=== PATIENT | female | born 1955 | race Caucasian/White ===

== ENCOUNTER → 2023-10-30 08:14 | Outpatient (REF) | payer BC, SELFPAY | LOC: HWRAD 08:14 | PROVIDERS: ATTENDING PHYSICIAN Obstetrics & Gynecology Gynecology; FAMILY PHYSICIAN Family Medicine | DX: R10.2 Pelvic and perineal pain (principal) | CPT/HCPCS: 76830; 76856 ==

== ENCOUNTER → 2023-12-25 07:15 | Outpatient (REF) | payer BC, SELFPAY | LOC: WDC 07:15 | PROVIDERS: ATTENDING PHYSICIAN Obstetrics & Gynecology Gynecology | DX: Z12.31 Encounter for screening mammogram for malignant neoplasm of breast (principal) | CPT/HCPCS: 77063; 77067 ==

== ENCOUNTER 2024-03-01 20:01 | Emergency (ER) | payer BC, SELFPAY ==
[2024-03-01 20:10] VITALS: BP 126/74
[2024-03-01] MEDS: TYLENOL 650 MG PO (20:19)
[2024-03-01 20:26] LABS: % Basophils 0.5 % (0-2); % Immature Granulocytes 0.3 % (0-0.5); % Lymphocytes 13.4 % (20.5-51.1); % Monocytes 3.5 % (1.7-9.3); % Neutrophils 82.3 % (42.2-75.2); Absolute Lymphocytes 0.8 10^3/uL (1.2-3.4); Absolute Monocytes 0.2 10^3/uL (0.1-0.6); Hematocrit 38.8 % (37.0-47.0); Mean Corp Hgb Conc. 36.1 g/dL (33.0-37.0); Mean Corpuscular Hgb 31.8 pg (27.0-31.0); Mean Corpuscular Volume 88.2 fL (81.0-99.0); Mean Platelet Volume 8.6 fL (7.4-10.4); Nucleated Red Blood Cells % 0 %; Platelet Count 172 10^3/uL (130-400); Red Cell Dist. Width 11.8 % (11.5-14.5); White Blood Cell Count 6.1 10^3/uL (4.8-10.8)
[2024-03-01 20:47] LABS: ALT (SGPT) 97 U/L (0-35); AST (SGOT) 95 U/L (14-36); Albumin 4.3 g/dl (3.5-5.0); Alkaline Phosphatase 138 U/L (38-126); Blood Urea Nitrogen 9 mg/dl (7-17); Calcium 9.2 mg/dl (8.4-10.2); Carbon Dioxide 26 mmol/L (22-30); Chloride 98 mmol/L (98-107); Glucose 116 mg/dl (70-99); Potassium 3.7 mmol/L (3.5-5.1); Sodium 133 mmol/L (135-145); Total Bilirubin 0.8 mg/dl (0.2-1.3); Total Protein 7.7 g/dl (6.3-8.2); eGFR > 60.00
[2024-03-01 21:13] VITALS: BMI 25.1
[2024-03-01 21:16] VITALS: BP 118/73
[2024-03-01 21:17] VITALS: BP 118/73
[2024-03-01] MEDS: MOTRIN 600 MG PO (21:36)
[2024-03-01 22:00] VITALS: BP 109/69
[2024-03-01 22:20] LABS: Lactic Acid 0.6 mmol/L (0.7-2.0)
[2024-03-01] MEDS: NSS 1000 IV (22:37)
[2024-03-01 22:58] LABS: Urine Albumin 1+ (Neg - Trace); Urine Bilirubin Negative (Negative); Urine Character Clear (Clear); Urine Color Yellow; Urine Glucose Negative (Negative); Urine Ketone 2+ (Negative); Urine Leukocyte Trace (Negative); Urine Nitrite Negative (Negative); Urine Occult Blood 1+ (Negative); Urine Urobilinogen 1+ (Neg - 1+)
[2024-03-01 23:03] VITALS: BP 102/67
[2024-03-02 00:17] VITALS: BP 95/64
[2024-03-02 00:30] VITALS: BP 92/63
[2024-03-02 00:32] VITALS: BP 98/65
--- NOTE | 2024-03-02 00:37 | ED.GENMED ---
History of Present Illness
General
Chief Complaint: Weakness
Source: patient
Exam Limitations: none
Time Seen by Provider: 03/01/24 21:16
Travel History
Have you had any contact with someone who has COVID-19?: No
Do you have any symptoms of coronavirus? Fever > 100 degrees, chills, cough, shortness of breath, sore throat, loss of taste or smell, muscle aches, or headache?: No
History of Present Illness
History of Present Illness:
68-year-old female presents with fatigue, fever myalgias headache. She was seen by the family doctor thought to potentially have a sinus infection and was started on amoxicillin. She took her first dose of 875 mg of amoxicillin this morning. She
notes no improvement. Temperature upon arrival is elevated. She is nauseous without vomiting. She does note a circular rash on the right side. Recent trip to [place]. No known sick contacts. No other complaint
Phy Exam
Physical Exam
Physical Exam:
General: Slightly ill-appearing female no acute respiratory distress
HEENT: Normocephalic mucosa moist neck is supple no adenopathy posterior pharynx without erythema
Heart: Regular rate and rhythm no murmurs lungs: Clear no wheeze or rales
Abdomen is soft nontender nondistended no guarding rebound normal bowel sounds
Extremities: No cyanosis or edema
Neurologic exam: No meningeal signs. Alert and oriented
Musculoskeletal exam: Spine nontender
Course
Orders/Labs/Results
Orders:
Orders
03/01/24 20:16
Acetaminophen [Tylenol] 650 mg PO NOW STA
03/01/24 20:22
CMP [Comprehensive Metabolic Panel] Urgent
Complete Blood Count/With Diff Urgent
03/01/24 21:29
Lactic Acid Q4H
Comment: ON ICE, CANCEL 2ND ORDER IF FIRST LACTIC ACID LEVEL <2
Lyme Progressive Urgent
Blood Culture Q30M
LISA Source: Blood/Venous
Specimen Description:
Comment: FROM 2 SEPARATE SITES
03/01/24 21:30
Blood Culture Q30M
LISA Source: Blood/Venous
Specimen Description:
Comment: FROM 2 SEPARATE SITES
03/01/24 21:33
Ibuprofen [Motrin] 600 mg PO NOW STA
03/01/24 22:26
0.9% Sodium Chloride 1000 ml [Nss] 1,000 ml IV BOLUS
CR Chest - 2 Views Urgent
Comment:
Reason For Exam: fever
03/01/24 22:35
Urinalysis Reflex To Culture Urgent
Date Specimen was Collected: 03/01/24
Time Specimen was Collected: 22:34
Urine Microscopic Reflex Cult Urgent
Urine Culture Urgent
LISA Source: U
Specimen Description:
Date Specimen was Collected: 03/01/24
Time Specimen was Collected: 22:34
03/02/24 00:34
0.9% Sodium Chloride 1000 ml [Nss] 1,000 ml IV BOLUS
03/02/24 01:09
Doxycycline [Vibramycin] 100 mg PO NOW STA
Abnormal Lab Results
03/01/24 03/01/24 03/01/24
20:22 21:29 22:35
MCH 31.8 H pg
(27.0-31.0)
Absolute Lymphs (auto) 0.8 L 10^3/uL
(1.2-3.4)
Neutrophils % 82.3 H %
(42.2-75.2)
Lymphocytes % 13.4 L %
(20.5-51.1)
Sodium 133 L mmol/L
(135-145)
Glucose 116 H mg/dl
(70-99)
Lactic Acid 0.6 L mmol/L
(0.7-2.0)
AST 95 H U/L
(14-36)
ALT 97 H U/L
(0-35)
Alkaline Phosphatase 138 H U/L
(38-126)
Urine Ketones 2+ A
(Negative)
Ur Occult Blood Reflex 1+ A
(Negative)
Leukocyte Esterase Rfl Trace A
(Negative)
Urine RBC 3-6 A /HPF
(0-2)
Urine Bacteria (Reflex) Moderate A
(Negative)
Urine Albumin (Reflex) 1+ A
(Neg - Trace)
03/01/24 20:22
03/01/24 20:22
Vital Signs
Initial and Last Documented VS:
Initial Vital Signs
Temp Pulse Resp BP Pulse Ox
102.0 F H 93 18 126/74 95
03/01/24 20:10 03/01/24 20:10 03/01/24 20:10 03/01/24 20:10 03/01/24 20:10
Last Documented Vital Signs
Temp Pulse Resp BP Pulse Ox
98.1 F 60 17 97/62 94
03/02/24 00:39 03/02/24 01:31 03/02/24 01:31 03/02/24 01:31 03/02/24 01:31
MDM/Problems Addressed
Differential Diagnosis Includes:
Temperature here 102.0. Tylenol and Motrin administered for fever. Fluids ordered. Chest x-ray urinalysis labs pending. Will order Lyme study secondary to circular rash on right thigh
*Critical Care Note
Total Time (30-74mins, 75-104mins- exclusive of procedures): Not Applicable
Update Note
Update Note:
Patient feeling much better after 2 L of fluid. Fever is gone headaches resolved. Still has circular rash on right lateral thigh consider possible Lyme. Will switch to doxycycline. Stable for discharge
ED Attending Note
-
Portions of this chart may have been created with voice recognition software.� Occasional wrong word or��sound alike� substitutions may have occurred due to the inherent limitations of voice recognition software.
Discharge Plan
Departure
Patient Disposition: Home (Routine Discharge)
Date of Disposition: 03/02/24
Time of Disposition: 01:11
Patient with high blood pressure during this ER visit?: No
Discharge Problem:
Fever
Instructions: Lyme disease, Fever, Adult (DC)
Prescriptions:
New
doxycycline hyclate 100 mg capsule
100 mg PO BID Qty: 28 0RF
Referrals:
Jada Erickson MD [Family Provider] -
Activity Restrictions/Additional Instructions:
As discussed you will will receive a call if your Lyme test is positive. Stop amoxicillin. Start doxycycline twice a day. Return here for worsening symptoms otherwise follow-up with family doctor
Interventions
Interventions:
*Risk Screen - Suicide Last Done: 03/01/24 20:10
*General Assessment Last Done: 03/01/24 20:10
*Neglect/Abuse Screening Last Done: 03/01/24 20:10
*Nursing Disposition Last Done: 03/02/24 01:40
ED- Cardiac Assessment Last Done: 03/01/24 21:39
ED- Neurological Assessment Last Done: 03/01/24 21:39
ED- Pulmonary Assessment Last Done: 03/01/24 21:39
Discharge Date and Time
Discharge Date/Time: 03/02/24 01:43
Print Language: [place]
[2024-03-02] MEDS: NSS 1000 IV (00:40)
[2024-03-02 00:45] LABS: Urine Hyaline Cast 0-2 /LPF (0-2); Urine Squamous Cell >30 /LPF (Few)
[2024-03-02 00:47] LABS: Urine Bacteria Moderate (Negative)
[2024-03-02 01:31] VITALS: BP 97/62
[2024-03-02] MEDS: VIBRAMYCIN 100 MG PO (01:37)
[2024-03-04 14:33] LABS: Lyme Antibody Screen, EIA Negative (Negative)
== END 2024-03-02 01:43 | disposition home or self-care (01) ==
LOC: EMR 20:01
PROVIDERS: Emergency Medicine; Physician Assistant; EMERGENCY PHYSICIAN Student in an Organized Health Care Education/Training Program; FAMILY PHYSICIAN Family Medicine
DX: R50.9 Fever, unspecified (principal)
CPT/HCPCS: 99284; 96360; 96361; 71046; 80053; 81003; 81015; 83605; 85025; 86618; 87040; 87086

== ENCOUNTER → 2024-09-02 06:25 | Day surgery (SDC) | payer BC, SELFPAY | LOC: GI 06:25 | PROVIDERS: ATTENDING PHYSICIAN Internal Medicine Gastroenterology | DX: D12.2 Benign neoplasm of ascending colon (principal); K57.30 Diverticulosis of large intestine without perforation or abscess without bleeding; K22.70 Barrett's esophagus without dysplasia; K22.89 Other specified disease of esophagus; K44.9 Diaphragmatic hernia without obstruction or gangrene; K31.7 Polyp of stomach and duodenum; Z86.0101 Personal history of adenomatous and serrated colon polyps; K31.89 Other diseases of stomach and duodenum | CPT/HCPCS: 45385; 45380; 43239; 88305; 88342 ==

== ENCOUNTER → 2024-12-27 06:50 | Outpatient (REF) | payer BC, SELFPAY | LOC: WDC 06:50 | PROVIDERS: ATTENDING PHYSICIAN Obstetrics & Gynecology Gynecology; FAMILY PHYSICIAN Family Medicine | DX: Z12.31 Encounter for screening mammogram for malignant neoplasm of breast (principal) | CPT/HCPCS: 77063; 77067 ==

== ENCOUNTER → 2025-05-09 15:03 | Outpatient (REF) | payer BC, SELFPAY | LOC: RAD 15:03 | PROVIDERS: ATTENDING PHYSICIAN Internal Medicine Gastroenterology; FAMILY PHYSICIAN Family Medicine | DX: R19.7 Diarrhea, unspecified (principal) | CPT/HCPCS: 74018 ==